=== PATIENT | male | born 1965 | race Caucasian/White ===

== ENCOUNTER 2020-01-01 16:27 | Emergency (ER) | payer BC ==
--- OUTSIDE RECORDS SUMMARY | 2020-01-01 16:38 | XMS REPORT | Summary of Care ---
:1965 Author Organization [facility] Address [address] [place] [id number] Care Team Providers Name Role Phone Trudy Alfaro MD Primary Care Provider Reason for Visit Reason Comments Follow-up Encounter Details Date Type Department Care Team Description 11/08/2019 Office Visit [facility] Gloria Duncan, S/P femoral- popliteal bypass surgery (Primary Dx); Associates MD PETER PAD (peripheral artery disease); Department of Surgery, [address] [place] [address] Claudication Division of Vascular Room [address] [facility] and [place], [place] Endovascular Services [phone] [facility] [phone] [place] [address] (Fax) [phone] Allergies No Known Allergiesdocumented as of this encounter (statuses as of 11/08/2019) Medications Medication Sig Dispensed Refills Start Date End Date Status acetaminophen Take 650 mg by 0 Active (ACETAMINOPHEN 8 HOUR) mouth every 8 650 MG CR tablet (eight) hours as needed for Pain atorvastatin (LIPITOR) Take 80 mg by 0 Active 80 MG tablet mouth every morning lisinopril Take 2.5 mg by 0 Active (PRINIVIL,ZESTRIL) 2.5 mouth every MG tablet morning aspirin 81 MG tablet Take 81 mg by 0 Active mouth every morning Multiple Take 1 tablet by 0 Active Vitamins-Minerals (MENS mouth every MULTIVITAMIN PLUS PO) morning amlodipine (NORVASC) Take 2.5 mg by 0 Active 2.5 MG tablet mouth daily documented as of this encounter (statuses as of 11/08/2019) Active Problems Problem Noted Date HTN (hypertension) 02/28/2019 HLD (hyperlipidemia) 02/28/2019 CAD (coronary artery disease) 02/28/2019 PAD (peripheral artery disease) 02/28/2019 Nicotine abuse 02/28/2019 Claudication 01/25/2019 Overview: Added automatically from request for surgery [id number] documented as of this encounter (statuses as of 11/08/2019) Social History Tobacco Use Types Packs/Day Years Used Date Current Some Day Smoker Cigarettes 0.5 35 Smokeless Tobacco: Never Used Alcohol Use Drinks/Week oz/Week Comments No Alcohol Habits Answer Date Recorded How often do you have a drink containing alcohol? Never 02/18/2019 How many drinks containing alcohol do you have on a typical Not asked day when you are drinking? How often do you have six or more drinks on one occasion? Not asked Sex Assigned at Date Recorded Not on file Job Start Date Occupation Industry Not on file Not on file Not on file Travel History Travel Start Travel End No recent travel history available. documented as of this encounter Last Filed Vital Signs Vital Sign Reading Time Taken Comments Blood Pressure 147/87 11/08/2019 11:02 AM EST Pulse 90 11/08/2019 11:02 AM EST Temperature 36.7 11/08/2019 11:02 AM EST C (98 F) Respiratory Rate 18 11/08/2019 11:02 AM EST Oxygen Saturation 98% 11/08/2019 11:02 AM EST Inhaled Oxygen Concentration - - Weight 69.9 kg (154 lb) 11/08/2019 11:02 AM EST Height 162.6 cm (5' 4") 11/08/2019 11:02 AM EST Body Mass Index 26.43 11/08/2019 11:02 AM EST documented in this encounter Progress Notes Gloria Duncan MD - 11/08/2019 10:30 AM EST Subjective: Patient ID: Rasheed Walker is a 54 y.o. male with past medical history of Coronary artery disease, Hyperlipidemia, Hypertension, Myocardial infarction, Nicotine abuse (02/28/2019), and PVD (peripheral vascular disease), Claudication ; who had a previous aortobifemoral bypass at [facility] by Dr. Schwartz (2009). He had a Right CEA also by him in 2009 at [facility]. 02/28/19 Procedure(s): (KA) Right femoral to below knee popliteal bypass with 8mm PTFE graft Pre-op MATTHEW LLE 0.92 and Right LE: 0.6 He follows up today after RLE bypass duplex US. He still has some numbness over the right medial calf where there is an incision. No new symptoms with walking. He said it has been a long time Since he has had his carotid arteries checked. He is s/p Right CEA. Chief Complaint: CARLY Iqbal has a past medical history of Coronary artery disease, Hyperlipidemia, Hypertension, Myocardial infarction, Nicotine abuse (02/28/2019), and PVD ( peripheral vascular disease). Rasheed has Claudication; HTN (hypertension); HLD (hyperlipidemia); CAD ( coronary artery disease); PAD (peripheral artery disease); and Nicotine abuse on their problem list. Rasheed has a past surgical history that includes Carpal tunnel release (2000); Carotid endarterectomy (Right, 2012); Knee arthroscopy (Right, 2009); Coronary angioplasty with stent (Right, 2015); Coronary artery bypass graft (2015); and pr bypass graft othr,fem-pop (Right, 02/28/2019). His family history includes Cancer in his mother; Heart disease in his brother; Hypertension in his father; Kidney disease in his father. Rasheed reports that he has been smoking cigarettes. He has a 17.50 pack-year smoking history. He has never used smokeless tobacco. He reports that he does not drink alcohol or use drugs. Rasheed has a current medication list which includes the following prescription(s ): acetaminophen, amlodipine, atorvastatin, lisinopril, multiple vitamins- minerals, and aspirin. Current Outpatient Medications on File Prior to Visit Medication Sig Dispense Refill acetaminophen (ACETAMINOPHEN 8 HOUR) 650 MG CR tablet Take 650 mg by mouth every 8 (eight) hours as needed for Pain amlodipine (NORVASC) 2.5 MG tablet Take 2.5 mg by mouth daily atorvastatin (LIPITOR) 80 MG tablet Take 80 mg by mouth every morning lisinopril (PRINIVIL,ZESTRIL) 2.5 MG tablet Take 2.5 mg by mouth every morning Multiple Vitamins-Minerals (MENS MULTIVITAMIN PLUS PO) Take 1 tablet by mouth every morning aspirin 81 MG tablet Take 81 mg by mouth every morning No current facility-administered medications on file prior to visit. Rasheed has No Known Allergies. Review of Systems All other systems reviewed and are negative. Objective: Physical Exam Constitutional: He is oriented to person, place, and time. He appears well- developed and well-nourished. HENT: Head: Normocephalic and atraumatic. Eyes: Pupils are equal, round, and reactive to light. Neck: Normal range of motion. Cardiovascular: Normal rate. Pulmonary/Chest: Effort normal. Musculoskeletal: He exhibits edema. RLE to foot 1+ Neurological: He is alert and oriented to person, place, and time. Skin: Skin is warm and dry. RLE groin and BK popliteal incisions intact. Psychiatric: He has a normal mood and affect. His behavior is normal. Judgment and thought content normal. Nursing note and vitals reviewed. Right DP, PT triphasic; peroneal biphasic Left DP, PT, peroneal triphasic Femoral pulses 2+ bilaterally Lab Review: 10/23/19 RLE Art Graft Duplex US: [facility]: Indication- aneurysm RLE Again noted at [employer] aneurysmal dilatation 2 x 1.5 x 1.5 cm (similar to that on Jun 2019). Mid graft PSV 82 cm/sec. External iliac artery aneurysm adjacent to anastomosis unchanged. Left Femoral artery to popliteal artery bypass graft is patent. No changes. Distal Run off patent. RLE bypass graft to assess graft patency and MATTHEW: 04/02/19 [employer] to popliteal artery bypass graft appears widely patent. Saccular type aneurysm is notedproximal to the anastomosis in the [employer] on right. Mid graft velocity 79, 83 cm/sec 04/02/19 Normal MATTHEW on right 1.0 - markedly improved since Jul 30, 2018. Left 0.96. Assessment: 1. S/P femoral-popliteal bypass surgery 2. PAD (peripheral artery disease) 3. Claudication Plan: Widely patent bypass. Normalized MATTHEW. Elevates leg for intermittent swelling.. F/u 6 months. Repeat bypass study in 6 months. I'll see him after. I am ordering Carotid Duplex US as well. documented in this encounter Plan of Treatment Date Type Specialty Care Team Description 05/08/2020 Office Visit Vascular Surgery Gloria Duncan MD [facility] [place] [address] [phone] Health Maintenance Due Date Last Done Comments MMR Vaccines (1 of 1 - Standard 1965 series) Varicella Vaccines (1 of 2 - 1965 2-dose childhood series) Pneumococcal Vaccine: Pediatrics 1970 (0 to 5 Years) and At-Risk Patients (6 to 64 Years) (1 of 1 - PPSV23) DTaP,Tdap,and Td Vaccines (1 - 1971 Tdap) HIV Screening 1977 Colon Cancer Screening 10 yrs 2014 Influenza Vaccine 08/20/2019 Pneumococcal Vaccine: 65+ Years (1 2029 of 2 - PCV13) Hepatitis C Screening (B. Completed 03/01/[id number]) HIB Vaccines Aged Out No longer eligible based on patient's age to complete this topic Hepatitis A Vaccines Aged Out No longer eligible based on patient's age to complete this topic Hepatitis B Vaccines Aged Out No longer eligible based on patient's age to complete this topic IPV Vaccines Aged Out No longer eligible based on patient's age to complete this topic documented as of this encounter Implants Implanted Type Area Experience Design Director Device Shelf Model / Identifier Expiration Serial / Lot Date Graft Intering T/W Ringed [id number] [facility] - [id number] Right: EWELINA CHAPMAN L + 09/19/2023 [id number] / Implanted: Qty: 1 on 02/28/2019 by Jase Saunders MD at OR [address] [id number] / documented as of this encounter Results Not on filedocumented in this encounter Visit Diagnoses Diagnosis S/P femoral-popliteal bypass surgery - Primary Other postprocedural status PAD (peripheral artery disease) Peripheral vascular disease, unspecified Claudication Peripheral vascular disease, unspecified documented in this encounter
--- NOTE | 2020-01-01 17:03 | ED ---
Lower Extremity - HPI Summary HPI Summary: Patient, redness and swelling to the fourth and fifth digits of right foot x 1 week. States he initially jammed toes into a door. Denies any other pain, injury or symptoms. Medical history is none. - History of Current Complaint Chief Complaint: EDExtremityLower Stated Complaint: NEED TEST DONE ON R FOOT SENT FROM DOC PER PT Time Seen by Provider: 01/01/20 17:02 Hx Obtained From: Patient Mechanism Of Injury: Blunt Trauma Onset of Pain: Immediate, Days Onset/Duration: Days Severity Initially: Severe Severity Currently: Severe Pain Intensity: 8 Pain Scale Used: 0-10 Numeric Timing: Constant Location: Is Discrete @ Character Of Pain: Aching, Throbbing Associated Signs And Symptoms: Positive: Swelling, Redness Aggravating Factor(s): Standing Alleviating Factor(s): Rest Able to Bear Weight: Yes - Allergies/Home Medications Allergies/Adverse Reactions: Allergies Allergy/AdvReac Type Severity Reaction Status Date / Time No Known Allergies Allergy Verified 01/16/19 07:52 Home Medications: Home Medications Amlodipine 2.5 mg TAB (NF) 2.5 mg PO DAILY 01/01/20 [History Confirmed 01/01/20] Aspirin EC TAB* [Ecotrin EC Low Dose 81 MG*] 81 mg PO DAILY 01/01/20 [History Confirmed 01/01/20] Atorvastatin* [Lipitor*] 80 mg PO DAILY 01/01/20 [History Confirmed 01/01/20] Lisinopril TAB* [Prinivil TAB*] 5 mg PO DAILY 01/01/20 [History Confirmed ] PMH/Surg Hx/FS Hx/Imm Hx Endocrine/Hematology History: Denies: Hx Diabetes, Hx Thyroid Disease Cardiovascular History: Reports: Hx Hypertension Respiratory History: Reports: Hx Asthma Denies: Hx Chronic Obstructive Pulmonary Disease (COPD) GI History: Denies: Hx Ulcer History: Denies: Hx Dialysis, Hx Renal Disease Sensory History: Denies: Hx Eye Prosthesis Opthamlomology History: Denies: Hx Legally Blind EENT History: Denies: Hx Deafness - Surgical History Surgery Procedure, Year, and Place: cardiac stent.abdominal artery bypass - states it was blocked - right carotid artery at the same time - 01/2011.right knee, right shoulder, bilat carpal tunnel Infectious Disease History: No Infectious Disease History: Denies: Hx Clostridium Difficile, Hx Hepatitis, Hx Human Immunodeficiency Virus (HIV), Hx of Known/Suspected MRSA, Traveled Outside the [place] in Last 30 Days - Family History Known Family History: Positive: Non-Contributory - Social History Alcohol Use: Occasionally Substance Use Type: Reports: None Smoking Status (MU): Current Every Day Smoker Type: Cigarettes Amount Used/How Often: <1 PPD Review of Systems Constitutional: Negative Eyes: Negative ENT: Negative Cardiovascular: Negative Respiratory: Negative Gastrointestinal: Negative Genitourinary: Negative Musculoskeletal: Negative Skin: Other Neurological/Mental Status: Negative Psychological: Normal All Other Systems Reviewed And Are Negative: Yes Physical Exam - Summary Physical Exam Summary: Erythema and swelling to second, third, fourth and fifth toes of right foot. Maceration of skin webbing between the fourth and fifth digits, and third and fourth digits. Positive purulent discharge. No abscess. Triage Information Reviewed: Yes Vital Signs On Initial Exam: Initial Vitals Temp Pulse Resp BP Pulse Ox 99.2 F 107 18 167/96 99 01/01/20 16:30 01/01/20 16:30 01/01/20 16:30 01/01/20 16:30 01/01/20 16:30 Vital Signs Reviewed: Yes Appearance: Positive: Well-Appearing Skin: Positive: Warm Head/Face: Positive: Normal Head/Face Inspection Eyes: Positive: Normal Neck: Positive: Supple Respiratory/Lung Sounds: Positive: Clear to Auscultation Cardiovascular: Positive: Normal Abdomen Description: Positive: Nontender Musculoskeletal: Positive: Normal Neurological: Positive: Normal Psychiatric: Positive: Normal AVPU Assessment: Alert - State Center Coma Scale Best Eye Response: 4 - Spontaneous Best Motor Response: 6 - Obeys Commands Best Verbal Response: 5 - Oriented Coma Scale Total: 15 Procedures - Sedation Patient Received Moderate/Deep Sedation with Procedure: No Diagnostics - Vital Signs Vital Signs Temp Pulse Resp BP Pulse Ox 01/01/20 16:30 99.2 F 107 18 167/96 99 - Laboratory Result Diagrams: 01/01/20 17:30 01/01/20 17:30 Lab Statement: Any lab studies that have been ordered have been reviewed, and results considered in the medical decision making process. Lower Extremity Course/Dx - Course Course Of Treatment: Patient, redness and swelling to the fourth and fifth digits of right foot x 1 week. States he initially jammed toes into a door. Denies any other pain, injury or symptoms. Medical history is none. Vital signs within normal limits. WBC 11. CRP 65. Labs otherwise are negative. - Diagnoses Provider Diagnoses: Cellulitis of foot, right Discharge ED - Sign-Out/Discharge Documenting (check all that apply): Patient Departure - Discharge Plan Condition: Stable Disposition: HOME Prescriptions: DOXYcycline CAP(*) [DOXYcycline 100MG CAP(*)] 100 mg PO BID 10 Days #20 cap Patient Education Materials: Cellulitis (ED) Referrals: Trudy Alfaro MD [Primary Care Provider] - Additional Instructions: Keep wounds between toes clean and dry. Take antibiotics as directed for 10 days. Follow-up with primary care. Return to the ED for any new or worsening symptoms. - Billing Disposition and Condition Condition: STABLE Disposition: Home
[2020-01-01 17:38] LABS: ABS Basophils 0.1 10^3/ul (0-0.2); ABS Eosinophils 0.4 10^3/ul (0-0.6); ABS Lymphocytes 3.4 10^3/ul (1.0-4.8); ABS Monocytes 0.9 10^3/ul (0-0.8); ABS Neutrophils 6.4 10^3/ul (1.5-7.7); Eosinophil % 3.4 %; Hematocrit 37 % (42-52); Hemoglobin 12.3 g/dL (14.0-18.0); Lymphocyte % 30.5 %; Mean Corpuscular HGB Conc 33 g/dL (31-36); Mean Corpuscular Hemoglobin 30 pg (27-31); Mean Corpuscular Volume 91 fL (80-94); Mean Platelet Volume 7.5 fL (7.4-10.4); Nucleated Red Blood Cells % 0.1; Platelet Count 316 10^3/uL (150-450); Red Blood Count 4.07 10^6 /uL (4.18-5.48); Red Cell Distribution Width 13 % (10-15); White Blood Count 11.3 10^3/uL (3.5-10.8)
[2020-01-01 17:54] LABS: Albumin 4.6 g/dL (3.2-5.2); Albumin/Globulin Ratio 1.2 (1-3); BUN/Creatinine Ratio 15.1 (8-20); C Reactive Protein 65.18 mg/L (<8.01); Calcium 10.2 mg/dL (8.6-10.3); EGFR African American 102.1 (>60); EGFR Non-African American 84.4 (>60); Globulin 3.7 g/dL (2-4); Potassium 4.1 mmol/L (3.5-5.0); Total Bilirubin 0.4 mg/dL (0.2-1.0); Total Protein 8.3 g/dL (6.4-8.9)
[2020-01-01] MEDS ORDERED: DOXYcycline CAP(*) 100 MG PO ONE (18:14)
[2020-01-01] MEDS ORDERED: Bacitracin OINTMENT* 0.5% 0.5 oz TUBE TOPICAL ONE (18:19)
[2020-01-01 18:46] VITALS: BP 147/91
== END 2020-01-01 18:44 | disposition home or self-care (01) ==
LOC: ED 16:27
DX: L03.115 Cellulitis of right lower limb (principal); I10 Essential (primary) hypertension; J45.909 Unspecified asthma, uncomplicated; Z95.5 Presence of coronary angioplasty implant and graft; F17.210 Nicotine dependence, cigarettes, uncomplicated; Z79.82 Long term (current) use of aspirin; Z79.899 Other long term (current) drug therapy
CPT/HCPCS: 36415; 80053; 83605; 85025; 86140; 87040; 99282; A9270-GY

== ENCOUNTER 2020-01-21 09:40 | Emergency (ER) | payer BC ==
--- OUTSIDE RECORDS SUMMARY | 2020-01-21 09:54 | XMS REPORT | Continuity of Care Document ---
:1965 External Reference #:[id number] Author Name Catalina Gallagher, [employer] Address [address] [place] [address] Care Team Providers Name Role Phone Curtis Hampton M.D. - Family Medicine Care Team Information Sales Correspondent [phone] Trudy Alfaro M.D. - Family Medicine Care Team Information Sales Correspondent Сергей Barakat MD - Endocrinology, Care Team Information Sales Correspondent [phone] Diabetes & Metabolism Gloria Duncan - Vascular Surgery Care Team Information Sales Correspondent [phone] Problems Active Problems Provider Date Essential hypertension Dk Martinez M.D. Onset: 10/27/2010 Hyperlipidemia Dk Martinez M.D. Onset: 10/27/2010 Arthropathy Dk Martinez M.D. Onset: 10/27/2010 Peripheral vascular disease Dk Martinez M.D. Onset: 09/19/2011 Mixed hyperlipidemia Shraddha Gerard Onset: 06/02/2016 Carotid artery stenosis Trudy Alfaro M.D. Onset: 08/28/2018 History of coronary artery bypass grafting Trudy Alfaro M.D. Onset: 2018 Coronary atherosclerosis Trudy Alfaro M.D. Onset: 04/02/2019 Chronic nonalcoholic liver disease Trudy Alfaro M.D. Onset: 04/02/2019 Social History Type Date Description Comments Sex Unknown Tobacco Use Start: Unknown End: Former Cigarette Smoker 1 Pack Daily Smoking Status Reviewed: 01/04/20 Former Cigarette Smoker 1 Pack Daily ETOH Use Denies alcohol use Recreational Drug Use Denies Drug Use Tobacco Use Start: Unknown End: Patient is a former smoker Unknown Allergies, Adverse Reactions, Alerts Description No Known Drug Allergies Medications Active Medications SIG Qnty Indications Ordering Date Provider Aspirin 1 by mouth every 90units [place] 01/08/2020 81mg day Ialeen, [employer] Chewtabs Gabapentin take 1 capsule at 90caps [place] 01/01/2020 100mg bedtime every night Aileen, [employer] Capsules by mouth, if helpful, can increase to 2 pills by mouth at bedtime, ind: pain right foot, temporaryuse Lisinopril Take One Tablet By 90tabs [facility], 04/02/2019 5mg Mouth Once Daily M.D. Tablets Atorvastatin 1 by mouth every 30tabs [facility], Calcium day M.D. 40mg Tablets Lisinopril 1 by mouth every 30tabs [facility], 2.5mg day M.D. Tablets Tylenol 8 Hour Unknown 650mg Tablets ER Amlodipine Besylate 1 by mouth every Unknown day 2.5mg Tablets Doxycycline Hyclate 1 by mouth twice a 14caps L03.031 [place] day Aileen, [employer] 100mg Capsules Immunizations CPT Code Status Date Vaccine Lot # [id number] Given 04/02/2019 Tdap Tetanus, W Pertussis [id number] Given 03/06/2006 Tetanus And Diptheria Adult Preservative Free >7Yrs Vital Signs Date Vital Result Comment 01/08/2020 3:47pm BP Systolic 142 mmHg BP Diastolic 78 mmHg Heart Rate 60 /min Body Temperature 97.4 F Respiratory Rate 16 /min Weight 167.12 lb shoes on 01/01/2020 3:25pm BP Systolic 120 mmHg BP Diastolic 70 mmHg Heart Rate 100 /min Body Temperature 98.1 F Respiratory Rate 20 /min Weight 164.00 lb Results Test Acquired Date Facility Test Result H/L Range Note CBC Auto Diff 01/01/2020 [facility] White Blood 11.3 10^3/uL High 3.5-10.8 Count Red Blood Count 4.07 10^6/uL Low 4.18-5.48 Hemoglobin 12.3 g/dL Low 14.0-18.0 Hematocrit 37 % Low 42-52 Mean Corpuscular Volume 91 fL Normal 80-94 Mean Corpuscular Hemoglobin 30 pg Normal 27-31 Mean Corpuscular HGB Conc 33 g/dL Normal 31-36 Red Cell Distribution Width 13 % Normal 10-15 Platelet Count 316 10^3/uL Normal 150-450 Mean Platelet Volume 7.5 fL Normal 7.4-10.4 Abs Neutrophils 6.4 10^3/uL Normal 1.5-7.7 Abs Lymphocytes 3.4 10^3/uL Normal 1.0-4.8 Abs Monocytes 0.9 10^3/uL High 0-0.8 Abs Eosinophils 0.4 10^3/uL Normal 0-0.6 Abs Basophils 0.1 10^3/uL Normal 0-0.2 Abs Nucleated RBC 0.0 10^3/uL Granulocyte % 57.2 % Lymphocyte % 30.5 % Monocyte % 8.3 % Eosinophil % 3.4 % Basophil % 0.6 % Nucleated Red Blood Cells % 0.1 Comp Metabolic Panel 01/01/2020 [facility] Sodium 135 mmol/L Normal 135-145 Potassium 4.1 mmol/L Normal 3.5-5.0 Chloride 101 mmol/L Normal 101-111 Co2 Carbon Dioxide 29 mmol/L Normal 22-32 Anion Gap 5 mmol/L Normal 2-11 Glucose 96 mg/dL Normal 70-100 Blood Urea Nitrogen 14 mg/dL Normal 6-24 Creatinine 0.93 mg/dL Normal 0.67-1.17 BUN/Creatinine Ratio 15.1 Normal 8-20 Calcium 10.2 mg/dL Normal 8.6-10.3 Total Protein 8.3 g/dL Normal 6.4-8.9 Albumin 4.6 g/dL Normal 3.2-5.2 Globulin 3.7 g/dL Normal 2-4 Albumin/Globulin Ratio 1.2 Normal 1-3 Total Bilirubin 0.40 mg/dL Normal 0.2-1.0 Alkaline Phosphatase 85 U/L Normal 34-104 Alt 22 U/L Normal 7-52 Ast 18 U/L Normal 13-39 Egfr Non- 84.4 >60 Egfr 102.1 >60 1 Laboratory test finding 01/01/2020 [facility] C Reactive Protein 65.18 mg/L High <8.01 Lactic Acid 0.9 mmol/L Normal 0.5-2.0 2 Blood Culture SEE RESULT BELOW 3 1 Because ethnic data is not always readily available, this report includes an eGFR for both -Americans and non- Americans. The National Kidney Disease Education Program (NKDEP) does not endorse the use of the MDRD equation for patients that are not between the ages of 18 and 70, are , have extremes of body size, muscle mass, or nutritional status, or are non- or non-. According to the National Kidney Foundation, irrespective of diagnosis, the stage of the disease is based on the level of kidney function: Stage Description GFR(mL/min/1.73 m(2)) 1 Kidney damage with normal or decreased GFR 90 2 Kidney damage with mild decrease in GFR 60-89 3 Moderate decrease in GFR 30-59 4 Severe decrease in GFR 15-29 5 Kidney failure <15 (or dialysis) 2 [place] Severe Sepsis and Septic Shock Management Bundle Measure requires all lactic acids initially measuring >2.0 mmol/L be repeated. 3 SEE RESULT BELOW Name: RASHEED WALKER : [address]: Bruno Ocampo Acct: [id number] Unit: [id number] AGE: 54 Location: ED Re01/01/20 SEX: M Status: DEP ER SPEC: [id number] DAVID: 01/01/[address] [facility] [address]: Orlando FREEMAN REQ: [id number] RECD: 01/01/20 STATUS: EMILY SAMANIEGO DR: Trudy Alfaro MD [facility] _ SOURCE: BLOOD,VENO SPDESC: ORDERED: Blood Cult COMMENTS: Patient is On Antibiotics? NO Procedure Result Reported Site Aerobic Culture Bottle Final 01/06/20- 1737 ML No Growth Day 5 Anaerobic Culture Bottle Final 01/06/20- 1737 ML No Growth Day 5 * ML - Main Lab . END OF REPORT DEPARTMENT OF PATHOLOGY, [address] [place] [address] Rasheed Paige M.D. Director [facility] # [id number] Procedures Description No Information Available Medical Devices Description No Information Available Encounters Type Date Location Provider Dx Diagnosis Office Visit 01/01/2020 [facility] Lolis Parra, L03.115 Cellulitis of 3:30p LYDIA right lower limb Assessments Date Code Description Provider 01/08/2020 L03.031 Cellulitis of right toe ALESSANDRO Keller 01/08/2020 I73.9 Peripheral vascular disease, unspecified ALESSANDRO Keller 01/08/2020 F17.210 Nicotine dependence, cigarettes, ALESSANDRO Keller uncomplicated 01/01/2020 L03.115 Cellulitis of right lower limb LYDIA Lisa Plan of Treatment Future Appointment(s):01/22/2020 3:20 pm - Trudy Alfaro M.D. at [facility] Agyncn2501/08/2020 - ROSCOE KellerPL03.031 Cellulitis of right toeComments :extend antibiotics another weekstay out of steel toes until resolved, may need a new pair altogethercontinue current care strategies-- epsom soak, sock cares, elevate leg/foot whenever eoapivdnQ11.9 Peripheral vascular disease, unspecifiedComments:can try gabapentin for painF17.210 Nicotine dependence, cigarettes, uncomplicatedAllNew Medication:Aspirin 81 mg - 1 by mouth every dayComments:Medication Management Patient Understands medications he 's taking ? Yes No Are there Barriers to Adherence? Yes No Has the patient been asked about herbal supplements and therapies, andOTC meds? Yes No As always, we strongly encourage a healthy diet and making physical activity a part of your every day life. If you have questions about how or where to start, please contact the office. Functional Status Description No Information Available Mental Status Description No Information Available Referrals Description No Information Available
--- OUTSIDE RECORDS SUMMARY | 2020-01-21 09:54 | XMS REPORT | Continuity of Care Document ---
:1965 External Reference #:[id number] Author Name LYDIA Lisa Address [address] [facility] [place] [address] Care Team Providers Name Role Phone Curtis Hampton M.D. - Family Medicine Care Team Information Retail Merchandiser Technician Trudy Alfaro M.D. - Family Medicine Care Team Information Retail Merchandiser Technician Unavailable Сергей Barakat MD - Endocrinology, Care Team Information Retail Merchandiser Technician Diabetes & Metabolism Gloria Duncan - Vascular Surgery Care Team Information Retail Merchandiser Technician [phone] Problems Active Problems Provider Date Essential hypertension Dk Martinez M.D. Onset: 10/27/2010 Hyperlipidemia Dk Martinez M.D. Onset: 10/27/2010 Arthropathy Dk Martinez M.D. Onset: 10/27/2010 Peripheral vascular disease Dk Martinez M.D. Onset: 09/19/2011 Mixed hyperlipidemia Jesus Gerard-C Onset: 06/02/2016 Carotid artery stenosis Trudy Alfaro [...] Medications Active Medications SIG Qnty Indications Ordering Provider Date Lisinopril Take One Tablet 90tabs [facility], 04/02/2019 5mg Tablets By Mouth Once M.D. Daily Atorvastatin Calcium 1 by mouth every 30tabs [facility], 40mg day M.D. Tablets Lisinopril 1 by mouth every 30tabs [facility], 2.5mg Tablets day M.D. Aspir-81 1 by mouth every Unknown 81mg Tablets DR day Tylenol 8 Hour Unknown 650mg Tablets ER Amlodipine Besylate 1 by mouth every Unknown 2.5mg day Tablets Immunizations CPT Code Status Date Vaccine Lot # [id number] Given 04/02/2019 Tdap Tetanus, W Pertussis [id number] Given 03/06/2006 Tetanus And Diptheria Adult Preservative Free >7Yrs Vital Signs Date Vital Result Comment 01/01/2020 3:25pm BP Systolic 120 mmHg BP Diastolic 70 mmHg Heart Rate 100 /min Body Temperature 98.1 F Respiratory Rate 20 /min Weight 164.00 lb 04/02/2019 3:55pm BP Systolic 164 mmHg BP Diastolic 80 mmHg Heart Rate 100 /min Body Temperature 97.7 F Respiratory Rate 12 /min Height 64 inches per patient Weight 154.00 lb BMI (Body Mass Index) 26.4 kg/m2 Results Test Acquired Date Facility Test Result H/L Range Note CBC Auto Diff 01/01/[place] [facility] [place] Blood 11.3 10^3/uL High 3.5-10.8 Count [...] : [address]: Bruno Ocampo Acct: [id number] Unit: [id number] AGE: 54 Location: ED Re01/01/20 SEX: M Status: DEP ER SPEC: [id number] DAVID: 01/01/[address]: Orlando FREEMAN REQ: [id number] RECD: 01/01/20 STATUS: RES ROBERTHR DR: Trudy Alfaro MD [facility] _ SOURCE: BLOOD,VENO SPDESC: ORDERED: Blood Cult COMMENTS: Patient is On Antibiotics? NO Procedure Result Reported Site Aerobic Culture Bottle Preliminary 02/13/20- 1737 ML No Growth Day 1 Anaerobic Culture Bottle Preliminary 01/02/20- 1737 ML No Growth Day 1 * ML - Main Lab . END OF REPORT DEPARTMENT OF PATHOLOGY, [address] [place] [address] Rasheed Paige M.D. Director [facility] # [id number] Procedures Description No Information Available Medical Devices Description No Information Available Encounters Description No Information Available Assessments Date Code Description Provider 01/01/2020 L03.115 Cellulitis of right lower limb LYDIA Lisa Plan of Treatment 01/01/2020 - oLlis Parra, PAL03.115 Cellulitis of right lower limbComments: Proceed to the Emergency room for further evaluation and care of your right foot. Risks of not complying with this advice including worsening infection, loss of foot, and widespread infection that could possibly result in were discussed with patient. Patient voiced understanding.AllComments:PCMHMedication Management Patient Understands medications he's taking? Yes Are there Barriers to Adherence? No Has the patient been asked about herbal supplements and therapies, and OTC meds? Yes Care Plan1. Patient has been queried about patient's goals/preferences and functional/lifestyle goals at relevant visits. Yes If relevant, describe: N/A2. Treatment goals as explained to the patient: above3. Are there barriers to meeting treatment goals ? No If Yes, please describe:4. Self-Management goals as described to the patient: Yes As always, we strongly encourage a healthy diet and making physical activity a part of your every day life. If you have questions about how or where to start, please contact the office. Functional Status Description No Information Available Mental Status Description No Information Available Referrals Description No Information Available
[2020-01-21 10:05] VITALS: BP 142/68
--- NOTE | 2020-01-21 10:23 | UC ---
Lower Extremity/Ankle HPI - HPI Summary HPI Summary: right foot pain x 4 weeks pain is severe , 9 out of 10 , worse at the right great toe , worse with walking, better with elevation , redness, swelling, warm to touch was seen at ED on 01/01/20 , was dx. with cellulitis , placed on 2 rounds of antibiotics not getting better, getting worse, no fever, no chills, no hx of DM hx of CAD, Stents - History of Current Complaint Chief Complaint: UCWounds Stated Complaint: RIGHT FOOT PAIN Time Seen by Provider: 01/21/20 10:02 Hx Obtained From: Patient Onset/Duration: Gradual Onset, Lasting Weeks - 4, Still Present Severity Initially: Severe Severity Currently: Severe Pain Intensity: 9 Pain Scale Used: 0-10 Numeric Aggravating Factor(s): Standing, Ambulation Alleviating Factor(s): Elevation Able to Bear Weight: Yes - Allergies/Home Medications Allergies/Adverse Reactions: Allergies Allergy/AdvReac Type Severity Reaction Status Date / Time No Known Allergies Allergy Verified 01/21/20 10:06 Home Medications: Home Medications Amlodipine 2.5 mg TAB (NF) 2.5 mg PO DAILY 01/01/20 [History Confirmed 01/21/20] Aspirin EC TAB* [Ecotrin EC Low Dose 81 MG*] 81 mg PO DAILY 01/01/20 [History Confirmed 01/21/20] Atorvastatin* [Lipitor*] 80 mg PO DAILY 01/01/20 [History Confirmed 01/21/20] Lisinopril TAB* [Prinivil TAB*] 5 mg PO DAILY 01/01/20 [History Confirmed ] PMH/Surg Hx/FS Hx/Imm Hx Cardiovascular History: Cardiac Disease, Hypertension - Surgical History Surgical History: Yes Surgery Procedure, Year, and Place: cardiac stent.abdominal artery bypass - states it was blocked - right carotid artery at the same time - 01/2011.right knee, right shoulder, bilat carpal tunnel. heart attack 2015 - Family History Known Family History: Positive: Hypertension, Non-Contributory Negative: Diabetes - Social History Alcohol Use: None Substance Use Type: None Smoking Status (MU): Current Every Day Smoker Type: Cigarettes Amount Used/How Often: <1 PPD q2 days Length of Time of Smoking/Using Tobacco: 20 yr Review of Systems All Other Systems Reviewed And Are Negative: Yes Constitutional: Negative: Fever, Chills, Fatigue Is Patient Immunocompromised?: No Physical Exam Triage Information Reviewed: Yes Appearance: Well-Nourished, Pain Distress Vital Signs: Initial Vital Signs Temp 98.7 F 01/21/20 09:57 Pulse 110 01/21/20 09:57 Resp 18 01/21/20 09:57 BP 142/68 01/21/20 09:57 Pulse Ox 100 01/21/20 09:57 Vital Signs Reviewed: Yes Eye Exam: Normal Eyes: Positive: Conjunctiva Clear ENT: Positive: Normal ENT inspection, Hearing grossly normal, Pharynx normal Neck: Positive: Supple, Nontender, No Lymphadenopathy Respiratory: Positive: Chest non-tender, Lungs clear, Normal breath sounds Cardiovascular: Positive: No Murmur, Tachycardia Skin: Positive: Other - right foot : + swelling, deep dark erythema , mostly at the big toe, extending to the ankle severe tenderness, warm touch, decrease distal pulses Lower Extremity Course/Dx - Differential Dx/Diagnosis Provider Diagnosis: Osteomyelitis of toe of right foot Discharge ED - Sign-Out/Discharge Documenting (check all that apply): Patient Departure All imaging exams completed and their final reports reviewed: No Studies - Discharge Plan Condition: Stable Disposition: HOME-RECOMMEND TO ED Patient Education Materials: Osteomyelitis (ED) Referrals: Trudy Alfaro MD [Primary Care Provider] - Additional Instructions: most likely having an infection of the bone in your right great toe please go to Emergency for evaluation and IV antibiotics - Billing Disposition and Condition Condition: STABLE Disposition: Home-Recommend to ED
== END 2020-01-21 10:16 | disposition home health service (06) ==
LOC: UCCORT 09:40
DX: M86.8X7 Other osteomyelitis, ankle and foot (principal); I10 Essential (primary) hypertension; F17.210 Nicotine dependence, cigarettes, uncomplicated; Z79.899 Other long term (current) drug therapy; Z79.82 Long term (current) use of aspirin
CPT/HCPCS: 99212; G0463

== ENCOUNTER 2020-01-21 12:12 | Emergency (ER) | payer BC ==
--- NOTE | 2020-01-21 12:59 | ED ---
Lower Extremity - HPI Summary HPI Summary: Patient is a 54 y/o M presenting to the ED for a chief complaint of right foot and right great toe edema that began a few weeks ago. Patient reports that he initially had a wound to the right foot. He later noticed that the right foot and great toe began to swell. Patient also notes pain and erythema in the right foot and right great toe. No aggravating or alleviating factors are reported. Patient was seen at Urgent Care and sent to [facility] for further assessment. He was previously placed on a course of antibiotics for an infection in the foot and great toe. A history of problems with blood flow in the right LE is reported. PSHx is significant for left LE surgery performed 1 year ago at [facility]. He denies any complications during or after the surgery and states he had good pulses after the surgery. His current vascular surgeon is Dr. Duncan. - History of Current Complaint Chief Complaint: EDExtremityLower Stated Complaint: RT FOOT SWELLING PER PT Time Seen by Provider: 01/21/20 12:47 Hx Obtained From: Patient Mechanism Of Injury: Other - None Onset of Pain: Prior to Arrival Onset/Duration: Still Present Severity Initially: Severe Severity Currently: Severe Pain Intensity: 9 Pain Scale Used: 0-10 Numeric Timing: Constant Location: Is Discrete @ - Right foot and right great toe Associated Signs And Symptoms: Positive: Swelling - Right foot and right great toe, Redness - Right foot and right great toe Aggravating Factor(s): Nothing Alleviating Factor(s): Nothing - Allergies/Home Medications Allergies/Adverse Reactions: Allergies Allergy/AdvReac Type Severity Reaction Status Date / Time No Known Allergies Allergy Verified 01/21/20 10:06 Home Medications: Home Medications Amlodipine 2.5 mg TAB (NF) 2.5 mg PO DAILY 01/01/20 [History Confirmed 01/21/20] Aspirin EC TAB* [Ecotrin EC Low Dose 81 MG*] 81 mg PO DAILY 01/01/20 [History Confirmed 01/21/20] Atorvastatin* [Lipitor*] 40 mg PO DAILY 01/01/20 [History Confirmed 01/21/20] Lisinopril TAB* [Prinivil TAB*] 5 mg PO DAILY 01/01/20 [History Confirmed ] Acetaminophen [Tylenol 8 Hour] 650 mg PO DAILY PRN 03/03/20 [History Confirmed 01/21/20] Bacitracin OINTMENT* 1 applic TOPICAL BID 01/21/20 [History Confirmed 01/21/20] Gabapentin CAP(*) [Neurontin 100 mg CAP(*)] 100 - 200 mg PO BEDTIME 01/21/20 [ History Confirmed 01/21/20] Lisinopril TAB* [Prinivil TAB*] 2.5 mg PO DAILY 01/21/20 [History Confirmed 02/06] PMH/Surg Hx/FS Hx/Imm Hx Previously Healthy: Yes Endocrine/Hematology History: Denies: Hx Diabetes, Hx Thyroid Disease Cardiovascular History: Reports: Hx Hypertension Respiratory History: Reports: Hx Asthma Denies: Hx Chronic Obstructive Pulmonary Disease (COPD) GI History: Denies: Hx Ulcer History: Denies: Hx Dialysis, Hx Renal Disease Sensory History: Denies: Hx Eye Prosthesis, Hx Legally Blind, Hx Deafness Opthamlomology History: Denies: Hx Eye Prosthesis, Hx Legally Blind EENT History: Denies: Hx Deafness - Surgical History Surgical History: Yes Surgery Procedure, Year, and Place: cardiac stent.abdominal artery bypass - states it was blocked - right carotid artery at the same time - 01/2011.right knee, right shoulder, bilat carpal tunnel. heart attack 2016 Infectious Disease History: No Infectious Disease History: Denies: Hx Clostridium Difficile, Hx Hepatitis, Hx Human Immunodeficiency Virus (HIV), Hx of Known/Suspected MRSA, Traveled Outside the [place] in Last 30 Days - Family History Known Family History: Positive: Hypertension Negative: Diabetes - Social History Occupation: Employed Full-time Lives: With Family Alcohol Use: None Hx Substance Use: No Substance Use Type: Reports: None Hx Tobacco Use: Yes Smoking Status (MU): Current Every Day Smoker Type: Cigarettes Amount Used/How Often: <1 PPD q2 days Length of Time of Smoking/Using Tobacco: 20 yr Review of Systems Positive: Myalgia - Right foot and right great toe, Edema - Right foot and right great toe Positive: Other - Positive erythema in the right foot and right great toe All Other Systems Reviewed And Are Negative: Yes Physical Exam - Summary Physical Exam Summary: Constitutional: Well-developed, Well-nourished, Alert. (-) Distressed Skin: Warm, Dry, erythema to R distal foot w duskiness of R great toe HENT: Normocephalic; Atraumatic Eyes: Conjunctiva normal Neck: Musculoskeletal ROM normal neck. (-) JVD, (-) Stridor, (-) Nuchal rigidity Cardio: Rhythm regular, rate normal, Heart sounds normal; Intact distal pulses; Radial pulses are 2+ and symmetric. (-) Murmur Pulmonary/Chest wall: Effort normal. (-) Respiratory distress, (-) Wheezes, (-) Rales Abd: Soft, (-) tenderness, (-) Distension, (-) Guarding, (-) Rebound Musculoskeletal: (-) Edema. maceration of skin between toes, ulcer to the dorsal aspect on the great toe and first MTP, duskiness to the mid part of the right foot, no DP/PT pulse on Doppler, old scar to the right calf, palpable fermoral pulse. Neuro: Alert, Oriented x3 Psych: Mood and affect Normal Triage Information Reviewed: Yes Vital Signs On Initial Exam: Initial Vitals Temp Pulse Resp BP Pulse Ox 98.8 F 109 18 151/91 98 01/21/20 12:14 01/21/20 12:14 01/21/20 12:14 01/21/20 12:14 01/21/20 12:14 Vital Signs Reviewed: Yes Procedures - Sedation Patient Received Moderate/Deep Sedation with Procedure: No Diagnostics - Vital Signs Vital Signs Temp Pulse Resp BP Pulse Ox 01/21/20 12:14 98.8 F 109 18 151/91 98 - Laboratory Result Diagrams: 01/21/20 13:06 01/21/20 13:06 Lab Statement: Any lab studies that have been ordered have been reviewed, and results considered in the medical decision making process. - Radiology Foot X-ray Radiology Interpretation Completed By: Radiologist Summary of Radiographic Findings: Foot X-ray IMPRESSION: 1. OSTEOARTHRITIS. 2. NO APPRECIABLE EROSION OR PERIOSTEAL REACTION. PLAIN RADIOGRAPH FINDINGS OFOSTEOMYELITIS ARE RELATIVELY LATE FINDINGS. IF THERE IS PERSISTENT CLINICAL CONCERN FOR OSTEOMYELITIS, RECOMMEND CORRELATION WITH FOLLOWUP IMAGING, THREE- PHASE BONE SCANNING,WHITE BLOOD CELL SCAN, AND/OR MRI OF THE AFFECTED REGION. Reviewed by Dr. Renee. - Ultrasound Duplex Scan Lower Extremity Artery Ultrasound Interpretation Completed By: Radiologist Summary of Ultrasound Findings: Duplex Scan Lower Extremity Artery IMPRESSION: #. The femoral popliteal bypass graft is occluded from the anastomosis with the common femoral artery extending distal. This is a new finding compared with the 2019 exam. #. Low-level monophasic flow is visualized at the [place] superficial femoral artery, popliteal artery, posterior tibial artery, peroneal artery, and anterior tibial artery as well as the dorsalis pedis artery. Peak systolic velocity within the distal peroneal artery is 16.8 cm/s, distal posterior tibial artery 11.2 cm/s, distal anterior tibial artery 17.5 cm/s, dorsalis pedis artery 16.1 cm/s. Reviewed by Dr. Renee. Re-Evaluation - Re-Evaluation First Eval Re-Evaluation Time: 13:09 Change: Unchanged Comment: At 13:09, there is no pulse on bedside Doppler US. Second Eval Re-Evaluation Time: 15:00 Change: Unchanged Comment: At 15:00, I will give the patient clindamycin and fluids. Lower Extremity Course/Dx - Course Course Of Treatment: 54 y/o male w hx PVD, pop-fem bypass at [facility] p/w RLE erythema. - PE w a dusky distal right foot, ulcers to the dorsal aspect of the great toe, macerated skin in between the toes. No palpable or Doppler signal DP pulse. No palpable PT pulse. 2+ right femoral pulse. 2+ left DP pulse. - ultrasound shows an occlusion of the left popliteal femoral bypass. Discussed with interventional radiology who recommends transfer. - Discuss with on-call vascular surgery [facility] who accepts the patient to their facility. - given clindamycin to cover for cellulitis. - Diagnoses Provider Diagnoses: Arterial occlusion, PVD (peripheral vascular disease), Cellulitis - Physician Notifications Discussed Care Of Patient With: Jonathan Wood - At 15:00, Dr. Jonathan Wood recommends a consult with [facility] for possible transfer. Patient requires transfer to another facility as he requires a higher level of care that is not available [place] [facility] At 16:21, Dr. Kermit Dougherty, a vascular surgeon, at [facility] states patient should go to [facility]. At 17:08, Dr. Poli Gifford who would like patient to be transferred to their facility at [facility]. As no beds are available, patient will be an ED-to-ED transfer. Dr. Bruno Carranza is the accepting physician. Time Discussed With Above Provider: 15:00 Instructed by Provider To: Transfer Reason For Transfer: Patient not appropriate for [facility] Specialist unable to manage this patient. Discharge ED - Sign-Out/Discharge Documenting (check all that apply): Patient Departure - Transfer - Discharge Plan Condition: Stable Disposition: TRANS HIGHER LVL OF CARE FAC Referrals: Trudy Alfaro MD [Primary Care Provider] - - Billing Disposition and Condition Condition: STABLE Disposition: Trans Higher Lvl of Care Fac - Attestation Statements Document Initiated by Scribe: Yes Documenting Scribe: Lorena Rosario Provider For Whom Aviva is Documenting (Include Credential): Romel Renee MD Scribe Attestation: Lorena Cook, scribed for Romel Renee MD on 01/21/20 at 1745. Scribe Documentation Reviewed: Yes Provider Attestation: The documentation as recorded by the Lorena petty accurately reflects the service I personally performed and the decisions made by Romel zaragoza MD Status of Scribe Document: Viewed
[2020-01-21] MEDS ORDERED: Ondansetron INJ* 2 MG/ML VIAL IV ONE (13:14)
[2020-01-21] MEDS ORDERED: Morphine 4 MG/ML VIAL (1 ml) 4 MG/ML VIAL IV ONE ×3 (13:14→17:43)
[2020-01-21 13:21] LABS: ABS Basophils 0.1 10^3/ul (0-0.2); ABS Eosinophils 0.2 10^3/ul (0-0.6); ABS Monocytes 1.1 10^3/ul (0-0.8); Eosinophil % 1.7 %; Hematocrit 34 % (42-52); Hemoglobin 11.5 g/dL (14.0-18.0); Lymphocyte % 22.2 %; Mean Corpuscular HGB Conc 34 g/dL (31-36); Mean Corpuscular Hemoglobin 31 pg (27-31); Mean Corpuscular Volume 90 fL (80-94); Mean Platelet Volume 7.3 fL (7.4-10.4); Nucleated Red Blood Cells % 0.1; Platelet Count 371 10^3/uL (150-450); Red Blood Count 3.78 10^6 /uL (4.18-5.48); Red Cell Distribution Width 14 % (10-15); White Blood Count 13.4 10^3/uL (3.5-10.8)
[2020-01-21 13:40] LABS: Albumin 4.4 g/dL (3.2-5.2); Albumin/Globulin Ratio 1.2 (1-3); BUN/Creatinine Ratio 23.2 (8-20); C Reactive Protein 49.98 mg/L (<8.01); Calcium 10.3 mg/dL (8.6-10.3); Globulin 3.8 g/dL (2-4); Potassium 4.3 mmol/L (3.5-5.0); Total Bilirubin 0.4 mg/dL (0.2-1.0); Total Protein 8.2 g/dL (6.4-8.9)
[2020-01-21 14:45] LABS: Erythrocyte Sed Rate 91 mm/Hr (0-19)
[2020-01-21] MEDS ORDERED: NS 0.9% 1000 ML** 1,000 ML IV ONE (14:59)
[2020-01-21] MEDS ORDERED: Clindamycin 600 MG/D5W BAG(*) 600 MG/50 ML BAG IV ONE (14:59)
[2020-01-21 18:22] VITALS: BP 114/63
== END 2020-01-21 18:27 | disposition short-term general hospital (02) ==
LOC: ED 12:12
DX: I70.401 Unspecified atherosclerosis of autologous vein bypass graft(s) of the extremities, right leg (principal); L03.115 Cellulitis of right lower limb; M19.071 Primary osteoarthritis, right ankle and foot; M86.8X7 Other osteomyelitis, ankle and foot; I10 Essential (primary) hypertension; Z79.82 Long term (current) use of aspirin; Z79.899 Other long term (current) drug therapy; Z95.5 Presence of coronary angioplasty implant and graft; F17.210 Nicotine dependence, cigarettes, uncomplicated
CPT/HCPCS: 36415; 80053; 85025; 85652; 86140; 87040; 96365; 96375; 96376; 99285; J2270; J2405